=== PATIENT | female | born 1960 | race Caucasian/White ===

== ENCOUNTER 2016-09-16 02:12 | Emergency (ER) | payer MEDICARE, MEDICAID ==
[~2016-09-16] VITALS: Ht 172.7 cm; Wt 90.9 kg
[~2016-09-16 02:12] MED LIST: ACET-1890 PO; Nicotine TOPICAL
[2016-09-16 02:14] VITALS: BP 125/55; PULSE 74; RESP 17; O2SAT 100
--- NOTE | 2016-09-16 03:13 | ED.REPORT ---
HPI-Hip/Pelvis Prob/Inj Date of Service Sep 16, 2016 ED Provider: Doc,Ed MD A 56 year old female with a history of Parkinson's disease and dementia s/p total right hip replacement presents to the ED via EMS from [facility] with right hip pain after an unwitnessed ground level fall just prior to arrival. The patient also reports right thigh pain. She denies other symptoms. EMS found the patient with normal vital signs. Nursing Notes Stated Complaint: GROUND LEVEL FALL Chief Complaint: Multiple Trauma/Fall Nursing Notes Reviewed: Yes Allergies: Coded Allergies: No Known Allergies (Verified , 03/16/14) Uncoded Allergies: No Known Allergies (Allergy, Mild, 02/16/05) Scheduled ([Nicotine]) 1 EA TDSY 1 EA TOPICAL DAILY Scheduled PRN Acetaminophen (Tylenol) 325 Mg Tablet 650 MG PO Q4H PRN PRN For Mild Pain General Time Seen by Provider: 02:12 Transferred From: residential Chief Complaint Hip injury right Hx Obtained From: Patient, EMS Arrived By: Ambulance Onset Occurred: Just prior to arrival Symptom Duration: Since onset Caused by: Fall on ground Location: Hip, R medial aspect Thigh, right medial Quality: Painful Severity: Current: Moderate Severity: Maximum: Moderate Associated with: Reports: Painful extremity, Denies: Fever Pertinent Negative: Relieved by nothing Related History: Reports: Prior hip fracture Immunizations: Unknown Recent Healthcare: No recent doctor visit Similar Sx Previous: Yes Past Medical History Past Medical History Parkinson's disease Dementia Past Surgical History Right hip replacement Smoking History Current Every Day Smoker Ambulatory Status Walker Review of Systems Constitutional: Denies: Fever Musculoskeletal: Reports: Extremity pain (Right thigh), Joint pain (Right hip) Complete sys rev & neg: except as marked. Respiratory: Denies: Non-productive cough, Shortness of breath GI: Denies: Diarrhea, Vomiting Physical Exam Physical Exam Notes: Initial Vital Signs Vital Signs (First) Date Time Temp Pulse Resp B/P Pulse Ox O2 Delivery O2 Flow Rate FiO2 09/16/16 02:14 36.9 74 17 125/55 100 Room Air Initial VS: Reviewed Head / Eyes: Atraumatic, Normocephalic Respiratory: Breath sounds normal, Clear to auscultation, No respiratory distress Cardiovascular: Regular rate & rhythm, Heart sounds normal Skin: Warm, Dry, No cyanosis Neurologic: Alert, Nonfocal Psychiatric: Mood/affect normal, Behavior normal, Normal thought content Lower Extremity / Pelvis / MS: Atraumatic Right Hip: Positive: Leg externally rotated, Leg shortened, Tenderness present... General/Constitutional: Awake, Alert Skin: Warm, Dry Psoriasis diffuse ENT: Airway patent, Mucous membranes moist Dentures present Interpretation & Diagnostics Lab Results Interpretation Test 09/16/16 03:00 Hold Purple Top Tube Received (Received) Hold Blue Top Tube Received (Received) Hold Santa Top Tube Received (Received) X-Ray Interpretation Xray Interpretation: Right hip dislocated Study Performed: 1 or 2 View X-Ray Ordered: Pelvis Interpretation / Wet Read by: Wet read ED physician Xray Interpretation: Successful reduction Study Performed: 1 View Post reduction X-Ray Ordered: Hip right Interpretation / Wet Read by: Wet read ED physician Procedures Procedure Notes: Preprocedure evaluation: No by mouth intake for greater than six hours. Has upper and lower dentures which were removed. Mallampiti class P1. ASA I. Reduction Post Dislocation Hip Time: 04:15 Procedure Performed by: ED physician Consent / Timeout / Setup: Consent from patient, Time-out performed, Oxygen administered, Pulse oximeter applied, front desk monitor applied, Hand hygiene observed, Stand sterile technique Procedural Sedation/Analgesia: Sedation: Propofol (Multiple aliquots of 20-40mg ) Which Hip and Technique: Right hip Neurovascular: Intact pre-procedure, Intact post-procedure Post-Procedure / Complications: Reduced per examination, Procedure successful, X-ray disloc reduced, Condition improved, Tolerated procedure well, Patient stable Re-Eval/Medical Decision Med Decision/Clinical Course 56-year-old shelter resident with chronic dementia and a total hip on the right, presents with a dislocation. This was reduced after sedation with propofol. Home now to the shelter via BLS. Hip precautions. Source of Hx: Old records Re-Evaluation/Progress #1: Time of Eval: 04:15 Re-Evaluation/Progress Note: Reduction performed. Re-Evaluation/Progress #2: Time of Eval: 05:15 Patient Status: Condition improved Re-Evaluation/Progress Note: Discussed with patient x-ray and lab results, diagnosis, and plan for discharge. Follow-up and return to the ER instructions given. Patient agrees with plan for care and all questions were addressed. Counseled Regarding: Diagnosis, Lab results, Need for follow-up, When/why to return to ED Discharge & Departure Shift Change Sign-Out Response to Therapy: Improved Impression: Primary Impression: Hip dislocation, right Encounter type: initial encounter Qualified Code: S73.004A - Unspecified dislocation of right hip, initial encounter Additional Impression: Dementia Disposition: Home Discharge Condition All VS Reviewed: Yes Condition: Improved Patient Instructions: Total Hip Replacement (ED) Additional Instructions: Follow-up with your doctor in the office. Return for any immediate issues. Keep knees together and avoid flexion of the hip. Continue current meds. Extra strength Tylenol as needed for pain. Referrals: NOPCP (PCP) Rosemarieibe Attestation Portions of this note were transcribed by Chrystal Benitez. I, Dr. Roldan, personally performed the history, physical exam, and medical decision-making; I reviewed and confirmed the accuracy of the information in the transcribed note. Signed by: Dany Chaudhari, 09/16/2016, 06:20 Fuentes Roldan MD Sep 16, 2016 03:13 CHRYSTAL BENITEZ Sep 16, 2016 04:35
[2016-09-16 03:28] VITALS: BP 132/75; PULSE 79; RESP 14; O2SAT 95
[2016-09-16] MEDS ORDERED: Propofol 10 mg/mL 20 mL Inj ONE ×2 (03:49→04:31)
[2016-09-16 05:22] VITALS: BP 105/86; PULSE 85; RESP 21; O2SAT 98
[2016-09-16 05:38] VITALS: BP 108/98; PULSE 85; RESP 16; O2SAT 99
--- NOTE | 2016-09-16 10:47 | DRSVH ---
PROCEDURE: X-RAY PELVIS, ONE OR TWO VIEWS ([id number]) INDICATIONS: pain in right upper thigh/hip TECHNIQUE: One view(s) of the pelvis acquired. COMPARISON: [facility], Hip x-ray, 1 view, 03/16/2014. FINDINGS: Bones: There is a right hip prosthesis. The prosthetic femoral neck is superiorly dislocated. No fra ctures. No suspicious bony lesions. Soft tissues: Visualized bowel gas pattern is normal. No suspicious soft tissue calcifications. IMPRESSION: Superior dislocation of prostatic right femoral neck. Dictated by: Augustine Castro M.D. on 09/16/2016 at 10:43 Approved by: Augustine Castro M.D. on 09/16/2016 at 10:44
--- NOTE | 2016-09-16 10:53 | DRSVH ---
PROCEDURE: X-RAY RIGHT HIP, ONE VIEW ([id number]) INDICATIONS: hip dislocation TECHNIQUE: 1 views of the hip were acquired. COMPARISON: [facility], , HIP 1VW (RT), 03/15/2014, 23:37. FINDINGS: Bones: There is a right hip prostheses in anatomic alignment. Superior dislocation of present femora l head is reduced. No fractures or dislocations. No suspicious bony lesions. The visualized pelvic ring appears intact. Soft tissues: No suspicious soft tissue calcifications or masses. IMPRESSION: Hip dislocation is reduced. The right hip prosthesis in anatomic alignment. No fractures. Dictated by: Augustine Castro M.D. on 09/16/2016 at 10:50 Approved by: Augustine Castro M.D. on 09/16/2016 at 10:51
== END 2016-09-16 05:39 | disposition home or self-care (01) ==
LOC: SED 02:12
DX: S73.004A Unspecified dislocation of right hip, initial encounter (principal); F03.90 Unspecified dementia, unspecified severity, without behavioral disturbance, psychotic disturbance, mood disturbance, and anxiety; W01.0XXA Fall on same level from slipping, tripping and stumbling without subsequent striking against object, initial encounter; Y93.01 Activity, walking, marching and hiking; Y99.8 Other external cause status; Y92.129 Unspecified place in nursing home as the place of occurrence of the external cause; F17.200 Nicotine dependence, unspecified, uncomplicated; F12.10 Cannabis abuse, uncomplicated; Z96.641 Presence of right artificial hip joint